=== PATIENT | male | born 1945 | race Native Hawaiian/Other Pacific Islander ===

== ENCOUNTER 2017-07-08 10:04 | Outpatient (CLI) | payer OTHER | END 2017-07-08 11:30 | disposition home or self-care (01) | LOC: RESP 10:04 | DX: Z01.818 Encounter for other preprocedural examination (principal) | CPT/HCPCS: 93005 ==

== ENCOUNTER 2018-05-23 18:22 | Emergency (ER) | payer OTHER ==
[~2018-05-23] VITALS: Ht 177.8 cm; Wt 85.3 kg
[2018-05-23 18:30] VITALS: TEMP 98.1
[2018-05-23 19:26] VITALS: BP 125/67
== END 2018-05-23 19:27 | disposition home or self-care (01) ==
LOC: ED 18:22
DX: H57.12 Ocular pain, left eye (principal)
CPT/HCPCS: 99283

== ENCOUNTER 2018-11-07 22:32 | Emergency (ER) | payer OTHER ==
[~2018-11-07] VITALS: Ht 177.8 cm; Wt 85.3 kg
[2018-11-07 23:39] LABS: PLATELET COUNT 217 K/uL (142-355)
[2018-11-07 23:50] LABS: POTASSIUM 4.2 mmol/L (3.6-5.2)
[2018-11-08 00:43] VITALS: BP 138/84
== END 2018-11-08 00:43 | disposition home or self-care (01) ==
LOC: ED 22:32
PROVIDERS: Family Medicine
DX: I10 Essential (primary) hypertension (principal)
CPT/HCPCS: 36415; 80053; 81000; 85027; 99283

== ENCOUNTER 2018-11-23 06:05 | Emergency (ER) | payer OTHER ==
[~2018-11-23] VITALS: Ht 177.8 cm; Wt 85.3 kg
[2018-11-23 06:17] VITALS: BP 159/92; TEMP 97.9
== END 2018-11-23 06:36 | disposition home or self-care (01) ==
LOC: ED 06:05
DX: M75.52 Bursitis of left shoulder (principal)
CPT/HCPCS: 99281

== ENCOUNTER 2018-12-02 07:26 | Outpatient (CLI) | payer OTHER | END 2018-12-02 23:11 | disposition home or self-care (01) | LOC: RESP 07:26 → MRI 11:30 → RESP 23:11 | DX: R56.9 Unspecified convulsions (principal); I65.22 Occlusion and stenosis of left carotid artery ==

== ENCOUNTER 2019-05-13 06:49 | Observation (INO) | payer OTHER ==
[~2019-05-13] VITALS: Ht 177.8 cm; Wt 83.5 kg
[2019-05-13 07:04] VITALS: BP 153/86; TEMP 97.9
[2019-05-13 07:45] LABS: PLATELET COUNT 195 K/uL (142-355)
[2019-05-13 07:52] LABS: POTASSIUM 4.1 mmol/L (3.6-5.2); SODIUM 140 mmol/L (136-145)
[2019-05-13 13:13] VITALS: BP 154/82; TEMP 98; Ht 177.8 cm; Wt 83.5 kg
[2019-05-13] MEDS ORDERED: ZIAC PO (15:39)
[2019-05-13 16:00] VITALS: BP 134/73; TEMP 97.7
[2019-05-13 20:00] VITALS: BP 133/73; TEMP 98.2
[2019-05-14] VITALS: BP 117/68; TEMP 98.3
[2019-05-14 04:00] VITALS: BP 120/66; TEMP 91.1
[2019-05-14 08:00] VITALS: BP 149/81; TEMP 97.6
--- NOTE | 2019-05-14 15:09 | NUR ---
1100 DISCHARGE INSTRUCTIONS EXPLAINED AND GIVEN TO PT AND PT'S . BOTH VERBALZIED UNDERSTANDING. RX CALLED INTO TO PHARM PER DR CHEN. PT AWARE. 1110 PT LEFT VIA WC WITH . NO DISTRESS NOTED. NO SEIZURE ATIVITY NOTED THIS ADMISSION
[2019-05-16] MEDS ORDERED: DILANTIN30 MG PO (10:25)
== END 2019-05-14 15:48 | disposition home or self-care (01) ==
LOC: ED 06:49 → MED/SURG 10:15 → UNDODEPER 13:33 → MED/SURG 05-14 15:48
PROVIDERS: Internal Medicine; ADMIT Family Medicine
DX: G40.89 Other seizures (principal); I10 Essential (primary) hypertension; E78.00 Pure hypercholesterolemia, unspecified; N40.0 Benign prostatic hyperplasia without lower urinary tract symptoms
CPT/HCPCS: 36415; 80053; 80185; 81000; 82550; 84484; 85027; 93005; 96365; 99220; 99284; G0378; J1165

== ENCOUNTER 2019-05-26 10:41 | Outpatient (CLI) | payer OTHER ==
[~2019-05-26 10:41] MED LIST: DILANTIN30 MG PO; ZIAC PO
== END 2019-05-26 23:34 | disposition home or self-care (01) ==
LOC: MRI 10:41
DX: G40.909 Epilepsy, unspecified, not intractable, without status epilepticus (principal)
CPT/HCPCS: A9576

== ENCOUNTER 2019-08-17 20:12 | Emergency (ER) | payer OTHER ==
[~2019-08-17] VITALS: Ht 177.8 cm; Wt 85.7 kg
[2019-08-17 21:30] VITALS: BP 174/89; TEMP 97.9
== END 2019-08-17 21:30 | disposition home or self-care (01) ==
LOC: ED 20:12
DX: H10.89 Other conjunctivitis (principal)
CPT/HCPCS: 99283

== ENCOUNTER 2019-11-12 11:13 | Emergency (ER) | payer OTHER ==
[~2019-11-12] VITALS: Ht 177.8 cm; Wt 85.7 kg
[2019-11-12 11:22] VITALS: TEMP 98
[2019-11-12 12:22] LABS: PLATELET COUNT 218 K/uL (142-355)
[2019-11-12 12:25] LABS: POTASSIUM 4.6 mmol/L (3.6-5.2)
[2019-11-12 14:50] VITALS: BP 128/75
== END 2019-11-12 14:55 | disposition home or self-care (01) ==
LOC: ED 11:13
PROVIDERS: Emergency Medicine
DX: R56.9 Unspecified convulsions (principal); E86.0 Dehydration; D64.89 Other specified anemias
CPT/HCPCS: 36415; 80053; 80185; 81000; 83735; 85027; 87502; 96360; 96361; 96365; 99284; Q2009

== ENCOUNTER 2019-11-21 09:08 | Outpatient (CLI) | payer OTHER | END 2019-11-21 20:10 | disposition home or self-care (01) | LOC: LABW 09:08 | DX: G40.909 Epilepsy, unspecified, not intractable, without status epilepticus (principal) | CPT/HCPCS: 36415; 80185 ==

== ENCOUNTER 2020-01-11 03:10 | Emergency (ER) | payer OTHER ==
[~2020-01-11] VITALS: Ht 177.8 cm; Wt 85.7 kg
[2020-01-11 04:27] LABS: POTASSIUM 3.8 mmol/L (3.6-5.2); SODIUM 141 mmol/L (136-145)
[2020-01-11 04:30] VITALS: TEMP 98
[2020-01-11 04:40] LABS: PARTIAL THROMBOPLASTIN TIME 24.7 SECONDS (24.5-33.6)
[2020-01-11 04:43] LABS: PLATELET COUNT 190 K/uL (142-355)
[2020-01-11 05:26] VITALS: BP 113/66
== END 2020-01-11 05:27 | disposition home or self-care (01) ==
LOC: ED 03:10
PROVIDERS: Student in an Organized Health Care Education/Training Program
DX: I10 Essential (primary) hypertension (principal); Z79.899 Other long term (current) drug therapy; Z51.81 Encounter for therapeutic drug level monitoring
CPT/HCPCS: 80048; 83735; 83880; 84484; 85027; 85610; 85730; 93005; 96374; 99284; J0360

== ENCOUNTER 2021-08-21 11:23 | Outpatient (CLI) | payer OTHER | END 2021-08-21 21:52 | disposition home or self-care (01) | LOC: RAD 11:23 | PROVIDERS: ATTEND Nurse Practitioner Family | DX: M25.512 Pain in left shoulder (principal) ==

== ENCOUNTER 2022-03-03 14:21 | Outpatient (CLI) | payer OTHER ==
[2022-03-03 14:37] LABS: PLATELET COUNT 214 K/uL (142-355)
[2022-03-03 15:21] LABS: POTASSIUM 4.4 mmol/L (3.6-5.2)
== END 2022-03-03 19:03 | disposition home or self-care (01) ==
LOC: LAB 14:21
PROVIDERS: ATTEND Nurse Practitioner Family
DX: I10 Essential (primary) hypertension (principal); G40.909 Epilepsy, unspecified, not intractable, without status epilepticus; N40.0 Benign prostatic hyperplasia without lower urinary tract symptoms; N52.8 Other male erectile dysfunction; Z79.899 Other long term (current) drug therapy; R53.81 Other malaise; R53.83 Other fatigue; E78.49 Other hyperlipidemia; R73.09 Other abnormal glucose
CPT/HCPCS: 80053; 80061; 80185; 83036; 84439; 84443; 85027

== ENCOUNTER 2023-04-24 08:15 | Outpatient (CLI) | payer OTHER | END 2023-04-24 20:48 | disposition home or self-care (01) | LOC: US 08:15 | PROVIDERS: ATTEND Nurse Practitioner Family | DX: R22.1 Localized swelling, mass and lump, neck (principal); R10.30 Lower abdominal pain, unspecified ==

== ENCOUNTER 2023-05-27 08:00 | Outpatient (CLI) | payer OTHER | END 2023-05-27 21:00 | disposition home or self-care (01) | LOC: CT 08:00 | PROVIDERS: ATTEND Nurse Practitioner Family | DX: R10.9 Unspecified abdominal pain (principal); R14.0 Abdominal distension (gaseous); R63.4 Abnormal weight loss; R19.5 Other fecal abnormalities; R63.0 Anorexia ==